=== PATIENT | female | born 1960 | race American Indian/Alaskan Native ===

== ENCOUNTER 2019-08-08 11:43 | Emergency (ER) | payer OTHER ==
[2019-08-08 13:52] LABS: Basophils % (Auto) 0.9 % (0.0-1.8); Hematocrit 40.8 % (30.3-42.9); Hemoglobin 13.5 gm/dl (10.1-14.3); Lymphocytes % (Auto) 24.1 % (13.4-35.0); Mean Corpuscular HGB Conc 33 % (30-34); Mean Corpuscular Volume 91 fl (79-97); Monocytes # (Auto) 0.4 K/mm3 (0.0-0.8); Monocytes % (Auto) 10.7 % (0.0-7.3); Platelet Count 239 K/mm3 (140-440); Red Blood Count 4.47 M/mm3 (3.65-5.03); Red Cell Distribution Width 13.9 % (13.2-15.2)
[2019-08-08 14:02] LABS: INR 1.06 (0.87-1.13)
[2019-08-08 14:03] LABS: Partial Thromboplastin Time 28.8 Sec. (24.2-36.6)
--- NOTE | 2019-08-08 14:09 | XRay Report ---
CHEST 1 VIEW INDICATION: Dysrhythmia. COMPARISON: None. FINDINGS: Support devices: None. Heart: Within normal limits with a left ventricular contour. Pulmonary vasculature: Normal. Lungs/Pleura: Lungs are normally expanded and clear. No airspace disease or pleural effusion. Additional findings: Aortic tortuosity. IMPRESSION: 1. No acute findings. 2. Hypertensive changes in the aorta and heart. Signer Name: Attila Zapata MD Signed: 08/08/2019 2:04 PM Workstation Name: [id number]
[2019-08-08 14:18] LABS: Alanine Aminotransferase 13 units/L (7-56); Albumin 3.9 g/dL (3.9-5); BUN/Creatinine Ratio 18; Blood Urea Nitrogen 14 mg/dL (7-17); Calcium 8.9 mg/dL (8.4-10.2); Hemolysis Index 21
--- NOTE | 2019-08-08 14:54 | Emergency Department Report ---
ED Palpitations HPI - General Chief Complaint: Arrhythmia/Palpitations Stated Complaint: CHEST PAIN Time Seen by Provider: 08/08/19 13:22 Source: EMS Mode of arrival: Stretcher Limitations: No Limitations - History of Present Illness Initial Comments: 58-year-old female recently diagnosed with hypertension presents to ED with palpitations. Patient states she was recently prescribed chlorthalidone for her blood pressure. Patient was at [facility], took 1 dose of this medication, and then went to the restroom. Patient states she was walking out of the bathroom then began feeling left-sided chest pain, palpitations, shortness of breath, and as if she was going to pass out. Patient states this episode lasted for approximately 3 minutes. Patient states it was approx 10 min between taking the medication and becoming symptomatic. MD Complaint: palpitations -: This afternoon Associated Symptoms: chest pain, shortness of breath, near-syncope. denies: nausea/vomiting - Related Data Home Medications Medication Instructions Recorded Confirmed Last Taken No Known Home Medications [No 09/28/13 09/28/13 Unknown Reported Home Medications] Allergies Allergy/AdvReac Type Severity Reaction Status Date / Time No Known Allergies Allergy Verified 09/29/13 01:34 ED Review of Systems ROS: Stated complaint: CHEST PAIN Other details as noted in HPI Comment: All other systems reviewed and negative Constitutional: denies: chills, fever Respiratory: shortness of breath. denies: cough Cardiovascular: chest pain, palpitations Gastrointestinal: denies: nausea, vomiting ED Past Medical Hx - Past Medical History Hx Hypertension: Yes Hx Congestive Heart Failure: No Hx Diabetes: No Hx Asthma: No Hx COPD: No Additional medical history: CYST ON BOTH KIDNEYS - Surgical History Past Surgical History?: Yes Additional Surgical History: TENDON REPAIR TO RIGHT WRIST-2013. UMBILICAL HER DANISHA REPAIR-2012 - Social History Smoking Status: Never Smoker - Medications Home Medications: Home Medications Medication Instructions Recorded Confirmed Last Taken Type No Known Home Medications [No 09/28/13 09/28/13 Unknown History Reported Home Medications] ED Physical Exam - General Limitations: No Limitations General appearance: alert, in no apparent distress - Head Head exam: Present: atraumatic, normocephalic - Eye Eye exam: Present: normal appearance, EOMI - ENT ENT exam: Present: mucous membranes moist - Neck Neck exam: Present: normal inspection - Respiratory Respiratory exam: Present: normal lung sounds bilaterally. Absent: respiratory distress - Cardiovascular Cardiovascular Exam: Present: regular rate, normal rhythm - GI/Abdominal GI/Abdominal exam: Present: soft. Absent: distended, tenderness - Extremities Exam Extremities exam: Present: normal inspection. Absent: pedal edema, calf tenderness - Neurological Exam Neurological exam: Present: alert, oriented X3, CN II-XII intact. Absent: motor sensory deficit - Psychiatric Psychiatric exam: Present: normal affect, normal mood - Skin Skin exam: Present: warm, dry, intact, normal color ED Course Vital Signs 08/08/19 08/08/19 12:22 16:00 Temperature 98.9 F Pulse Rate 89 78 Respiratory 18 15 Rate Blood Pressure 131/88 131/90 [Right] O2 Sat by Pulse 100 96 Oximetry ED Medical Decision Making - Lab Data Result diagrams: 08/08/19 13:35 08/08/19 13:35 - EKG Data -: EKG Interpreted by Sd EKG shows normal: sinus rhythm, axis, intervals, QRS complexes, ST-T waves Rate: normal - EKG Data Interpretation: no acute changes - Radiology Data Radiology results: report reviewed, image reviewed - Medical Decision Making - vitals normal - EKG unremarkable - pt not orthostatic at this time - likely reaction to medication since first time taking it - advised to d/c medication and follow-up w/ her physician - Differential Diagnosis arrythmia, orthostatics, med side effect Critical care attestation.: If time is entered above; I have spent that time in minutes in the direct care of this critically ill patient, excluding procedure time. ED Disposition Clinical Impression: Palpitations, Near syncope Disposition: - TO HOME OR SELFCARE Is pt being admited?: No Condition: Stable Instructions: Palpitations (ED), Near Syncope (ED) Referrals: PRIMARY CARE, [Primary Care Provider] - 24 Hours Time of Disposition: 15:40
[2019-08-08 16:39] VITALS: BP 131/90
== END 2019-08-08 16:00 | disposition home or self-care (01) ==
LOC: ED 11:43
DX: R55 Syncope and collapse (principal); R00.2 Palpitations; I10 Essential (primary) hypertension; Z98.890 Other specified postprocedural states
CPT/HCPCS: 36415; 71045; 80053; 84484; 85025; 85379; 85610; 85730; 93005; 93010